=== PATIENT | male | born 1995 | race African-American/Black ===

== ENCOUNTER 2017-12-14 16:38 | Emergency (ER) | payer MEDICAID ==
[2017-12-14] MEDS: IBUPROFEN 600 MG TAB PO (18:38)
== END 2017-12-14 19:54 | disposition home or self-care (01) ==
LOC: FTE 16:38
DX: M54.6 Pain in thoracic spine (principal); M25.511 Pain in right shoulder; M79.604 Pain in right leg; M79.605 Pain in left leg
CPT/HCPCS: 99283; Z7502